=== PATIENT | female | born 1980 | race Hispanic/Latino ===

== ENCOUNTER 2017-06-07 00:32 | Emergency (ER) | payer OTHER ==
[~2017-06-07] VITALS: Ht 172.7 cm; Wt 77.6 kg
[~2017-06-07 00:32] MED LIST: APIDRA100 UNIT/1; CARTRIDGE STAM1 EACH SC; CEFUROXIME250 MG PO; DETROL LA4 MG PO; IBUPROFEN400 MG PO; LANTUS100 UNIT/1; LISINOPRIL10 MG PO; NORCO 10MG-325MG1 EA PO; NOVOLOG SC; PEPCID20 MG PO; PRAVASTATIN SOD20 MG PO; REGLAN10 MG PO
[2017-06-07] MEDS ORDERED: INSULIN REGULAR, HUMAN 100 UNIT/1 ML 3ML VIAL ONE (00:59)
[2017-06-07] MEDS ORDERED: SODIUM CHLORIDE 0.9% 1000ML 1,000 ML ONE (00:59)
[2017-06-07] MEDS ORDERED: INSULIN REGULAR, HUMAN 100 UNIT/1 ML 3ML VIAL SQ ONE (01:00)
[2017-06-07] MEDS ORDERED: SODIUM CHLORIDE 0.9% 1000ML 1,000 ML IV ONE ×2 (01:00→01:30)
[2017-06-07] MEDS ORDERED: INSULIN REGULAR, HUMAN 100 UNIT/1 ML 3ML VIAL IV ONE (01:00)
[2017-06-07 01:02] LABS: BASOPHILS % 0.2 % (0.0-1.0); BILIRUBIN,URINE NEGATIVE (NEGATIVE); CLARITY,URINE CLEAR (CLEAR); COLOR,URINE YELLOW (YELLOW); EOSINOPHILS # (AUTO) 0.2 (0.0-0.4); EOSINOPHILS % 1.9 % (0.0-6.0); HEMATOCRIT 36.7 % (34.2-44.1); KETONES,URINE 2+ (NEGATIVE); LEUKOCYTE ESTERASE ,URINE NEGATIVE (NEGATIVE); LYMPHOCYTES # (AUTO) 2.6 (1.0-3.2); LYMPHOCYTES % 27.1 % (18.0-39.1); MEAN CORPUSCULAR HEMOGLOBIN 26.8 pg (28-32); MEAN CORPUSCULAR HGB CONC 32.7 g/dL (31-35); MEAN CORPUSCULAR VOLUME 82.1 fL (81-99); MONOCYTES # (AUTO) 0.4 (0.2-0.8); MONOCYTES % 4.5 % (4.4-11.3); NEUTROPHILS # (AUTO) 6.3 (2.1-6.9); NEUTROPHILS % 66.1 % (38.7-80.0); NITRITE,URINE NEGATIVE (NEGATIVE); PLATELET COUNT 182 x10e3/uL (140-360); PROTEIN,URINE DIPSTICK NEGATIVE (NEGATIVE); RED BLOOD COUNT 4.47 x10e6/uL (3.6-5.1); RED CELL DISTRIBUTION WIDTH 15.7 % (11.7-14.4); URINE UROBILINOGEN 0.2 mg/dL (0.2 - 1)
[2017-06-07 01:13] LABS: BACTERIA,URINE RARE /HPF; EPITHELIAL CELLS,URINE RARE /LPF; RBC,URINE 0-5 /HPF (0-5); WBC,URINE (MAN) 0-5 /HPF (0-5)
[2017-06-07 01:19] LABS: ALBUMIN 3.4 g/dL (3.5-5.0); ANION GAP 14.3 mmol/L (8-16); CREATININE, SERUM 1.19 mg/dL (0.57-1.11); POTASSIUM 5.3 mmol/L (3.5-5.1)
--- NOTE | 2017-06-07 01:50 | Diagnostic Imaging Report ---
EXAM: CHEST SINGLE (PORTABLE), AP 1 view INDICATION: Hyperglycemia, bodyaches COMPARISON: None FINDINGS: LINES/TUBES: None LUNGS: No consolidations or edema. PLEURA: No effusions or pneumothorax. HEART AND MEDIASTINUM: Normal size and contour. BONES AND SOFT TISSUES: No acute findings. IMPRESSION: No acute thoracic abnormality. Signed by: Dr. Franchesca Posadas M.D. on 06/07/2017 1:47 AM
[2017-06-07 03:07] LABS: ANION GAP 9.7 mmol/L (8-16); BLOOD UREA NITROGEN 14 mg/dL (7-26); BUN/CREATININE RATIO 18 (6-25); CALCIUM 8.2 mg/dL (8.4-10.2); CARBON DIOXIDE 21 mmol/L (22-29); CHLORIDE 108 mmol/L (98-107); EST GLOMERULAR FILTRATION RATE > 60 ML/MIN (60-); GLUCOSE 346 mg/dL (74-118)
[2017-06-07 03:15] LABS: POTASSIUM 3.7 mmol/L (3.5-5.1); SODIUM 135 mmol/L (136-145)
== END 2017-06-07 04:01 | disposition home or self-care (01) ==
LOC: ER 00:32
DX: E10.65 Type 1 diabetes mellitus with hyperglycemia (principal); I10 Essential (primary) hypertension; E78.5 Hyperlipidemia, unspecified
CPT/HCPCS: 36415; 71045; 80048; 80053; 81001; 82948; 85025; 99284; J7030

== ENCOUNTER 2017-07-04 09:15 | Observation (INO) | payer OTHER ==
[~2017-07-04] VITALS: Ht 172.7 cm; Wt 82.6 kg
--- OUTSIDE RECORDS SUMMARY | 2017-07-04 09:18 | XMS REPORT | Continuity of Care Document ---
Author Author [facility] Organization [facility] Address [address] [place] [address] Phone Unavailable Care Team Providers Care Sewing Room Supervisor Name Role Phone NAVEED DELUNA MD PCP Insurance Providers Guarantor ShayyMisha Address [address] [place] [address] [facility] Policy Number [id number] Subscriber's Name ShayyAjit lott Relationship 01 Group Number [id number] Group Name [facility] Effective Date 11 Advance Directives Directive Response Recorded Date/Time Does the patient have an advance directive? No 10/31/13 10:36pm If yes, is advance directive on file with [facility]? No 10/31/13 10:36pm If not on file with [facility] will patient provide a copy? Yes 12/31/16 1:51am Do you have a Directive to Physician? No 06/07/17 12:48am Do you have a Medical Power of Ict Development Manager? No 06/07/17 12:48am Do you have an out of hospital Do Not Resuscitate Order? No 06/07/17 12:48am Do you have any special needs we should be aware of? No 06/07/17 12:48am Do you have a support person here with you today? Yes 06/07/17 12:48am Did patient receive Notice of Privacy Practices? Yes 06/07/17 12:48am Did patient receive patient rights and responsibilities? Yes 06/07/17 12:48am Problems No problem information available. Medications Current Home Medications Medication Dose Units Route Directions Days Qty Instructions Start Date Ibuprofen 400 Mg Tablet 800 Mg Oral As Needed for Pain Novolog 25 Units Subcutaneously Before Meals And At Bedtime Past Home Medications Medication Directions Ordered Status Acetaminophen/Hydrocodone Bitart ([place] 10MG-325MG*) 1 Ea Tab, 1 Tab Oral Every 4 Hours as needed for Pain Discontinued Cefuroxime Axetil (Cefuroxime) 250 Mg Tablet, 500 Mg Oral Every 12 Hours Discontinued Famotidine (Pepcid) 20 Mg Tablet, 40 Mg Oral Twice A Day Discontinued Lisinopril 10 Mg Tablet, 10 Mg Oral Daily Discontinued Metoclopramide Hcl (Reglan) 10 Mg Tablet, 10 Mg Oral Tid W/Meals Discontinued Pravastatin Sodium 20 Mg Tablet, 20 Mg Oral Bedtime Discontinued Tolterodine Tartrate (Detrol La) 4 Mg Cap.er.24h, 4 Mg Oral Daily as needed for Urinary Frequency Discontinued Social History Social History Problem Response Recorded Date/Time Onset Date Status Hx Psychiatric Problems No 10/31/2013 10:36pm Not Applicable Not Applicable Hx Eating Disorder No 10/31/2013 10:36pm Not Applicable Not Applicable Hx Substance Use Disorder No 10/31/2013 10:36pm Not Applicable Not Applicable Hx Depression Yes 10/31/2013 10:36pm Not Applicable Not Applicable Hx Alcohol Use No 10/31/2013 10:36pm Not Applicable Not Applicable Hx Substance Use Treatment No 10/31/2013 10:36pm Not Applicable Not Applicable Hx Physical Abuse No 10/31/2013 10:36pm Not Applicable Not Applicable Hospital Discharge Instructions No hospital discharge instruction information available. Plan of Care Discharge Date 06/07/17 4:01am Disposition HOME, SELF-CARE Condition at Discharge Improved Instructions/Education Provided Diabetes and Diet Hyperglycemia Forms Provided Work/School Excuse Prescriptions See Medication Section Referrals NAVEED DELUNA MD Order Date: Call for an appointment Address: [id number] [place] [address] [address] [place] [address] Additional Instructions/Education drink plenty of fluids follow diabetic diet follow-up with your primary care provider, call for appointment Functional Status No functional status information available. Allergies, Adverse Reactions, Alerts Allergen Type Severity Reaction Status Last Updated Levofloxacin Allergy Intermediate shivering, shaking, pain Active 10/31/13 Immunizations No immunization information available. Vital Signs Acute Vital Signs Vital Response Date/Time Pulse Pulse Rate (adult) 99 bpm (60 - 90) 12/31/2016 4:55am Respiratory Rate 14 bpm (12 - 24) 12/31/2016 4:55am Blood Pressure 112/67 mm Hg 12/31/2016 4:55am Height 5 ft 8 in 06/07/2017 12:44am Weight 171 lb 06/07/2017 12:44am Body Mass Index 26.0 kg/m^2 06/07/2017 12:44am Results Laboratory Results Test Name Result Units Flags Reference Collection Date/Time Result Date/ Time Comments Amylase Level 44 U/L 25-125 12/31/2016 1:33am 12/31/2016 2:01am Lipase 26 U/L 8-78 12/31/2016 1:33am 12/31/2016 2:01am Human Chorionic Gonadotropin, Qual NEGATIVE NEGATIVE 12/31/2016 1: 33am 12/31/2016 1:49am Ethyl Alcohol Level 220.0 mg/dL H 0.0-10.0 12/31/2016 1:33am 12/31/2016 2:01am White Blood Count 9.59 x10e3/uL 4.8-10.8 06/07/2017 12:50am 06/07/2017 1:04am Red Blood Count 4.47 x10e6/uL 3.6-5.1 06/07/2017 12:50am 06/07/2017 1: 04am Hemoglobin 12.0 g/dL 12.0-16.0 06/07/2017 12:50am 06/07/2017 1:04am Hematocrit 36.7 % 34.2-44.1 06/07/2017 12:50am 06/07/2017 1:04am Mean Corpuscular Volume 82.1 fL 81-99 06/07/2017 12:50am 06/07/2017 1: 04am Mean Corpuscular Hemoglobin 26.8 pg L 28-32 06/07/2017 12:50am 2017 1:04am Mean Corpuscular Hemoglobin Concent 32.7 g/dL 31-35 06/07/2017 12:50am 06/07/2017 1:04am Red Cell Distribution Width 15.7 % H 11.7-14.4 06/07/2017 12:50am 2017 1:04am Platelet Count 182 x10e3/uL 140-360 06/07/2017 12:50am 06/07/2017 1: 04am Neutrophils (%) (Auto) 66.1 % 38.7-80.0 06/07/2017 12:50am 06/07/2017 1 :04am Lymphocytes (%) (Auto) 27.1 % 18.0-39.1 06/07/2017 12:50am 06/07/2017 1 :04am Monocytes (%) (Auto) 4.5 % 4.4-11.3 06/07/2017 12:50am 06/07/2017 1: 04am Eosinophils (%) (Auto) 1.9 % 0.0-6.0 06/07/2017 12:50am 06/07/2017 1: 04am Basophils (%) (Auto) 0.2 % 0.0-1.0 06/07/2017 12:50am 06/07/2017 1: 04am IM GRANULOCYTES % 0.2 % 0.0-1.0 06/07/2017 12:50am 06/07/2017 1:04am Neutrophils # (Auto) 6.3 2.1-6.9 06/07/2017 12:50am 06/07/2017 1: 04am Lymphocytes # (Auto) 2.6 1.0-3.2 06/07/2017 12:50am 06/07/2017 1: 04am Monocytes # (Auto) 0.4 0.2-0.8 06/07/2017 12:50am 06/07/2017 1:04am Eosinophils # (Auto) 0.2 0.0-0.4 06/07/2017 12:50am 06/07/2017 1: 04am Basophils # (Auto) 0.0 0.0-0.1 06/07/2017 12:50am 06/07/2017 1:04am Absolute Immature Granulocyte (auto 0.02 x10e3/uL 0-0.1 06/07/2017 12: 50am 06/07/2017 1:04am Urine Color YELLOW YELLOW 06/07/2017 12:50am 06/07/2017 1:05am Urine Clarity CLEAR CLEAR 06/07/2017 12:50am 06/07/2017 1:05am Urine Specific [place] 1.015 1.010-1.025 06/07/2017 12:50am 2017 1:05am Urine pH 5 5 - 7 06/07/2017 12:50am 06/07/2017 1:05am Urine Leukocyte Esterase NEGATIVE NEGATIVE 06/07/2017 12:50am 2017 1:05am Urine Nitrite NEGATIVE NEGATIVE 06/07/2017 12:50am 06/07/2017 1:05am Urine Protein NEGATIVE NEGATIVE 06/07/2017 12:50am 06/07/2017 1:05am Urine Glucose (UA) 3+ H NEGATIVE 06/07/2017 12:50am 06/07/2017 1:05am Urine Ketones 2+ H NEGATIVE 06/07/2017 12:50am 06/07/2017 1:05am Urine Urobilinogen 0.2 mg/dL 0.2 - 1 06/07/2017 12:50am 06/07/2017 1: 05am Urine Bilirubin NEGATIVE NEGATIVE 06/07/2017 12:50am 06/07/2017 1: 05am Urine Blood TRACE H NEGATIVE 06/07/2017 12:50am 06/07/2017 1:05am Urine WBC 0-5 /HPF 0-5 06/07/2017 12:50am 06/07/2017 1:13am Urine RBC 0-5 /HPF 0-5 06/07/2017 12:50am 06/07/2017 1:13am Urine Bacteria RARE /HPF NONE 06/07/2017 12:50am 06/07/2017 1:13am Urine Epithelial Cells RARE /LPF NONE 06/07/2017 12:50am 06/07/2017 1: 13am Sodium Level 135 mmol/L # L 136-145 06/07/2017 2:45am 06/07/2017 3:16am VERIFIED PREVIOUS RESULTS Potassium Level 3.7 mmol/L # 3.5-5.1 06/07/2017 2:45am 06/07/2017 3:16am VERIFIED PREVIOUS RESULTS Chloride Level 108 mmol/L H 98-107 06/07/2017 2:45am 06/07/2017 3:16am Carbon Dioxide Level 21 mmol/L L 22-06/07/2017 2:45am 06/07/2017 3: 16am Anion Gap 9.7 mmol/L 8-16 06/07/2017 2:45am 06/07/2017 3:16am Blood Urea Nitrogen 14 mg/dL 7-06/07/2017 2:45am 06/07/2017 3:16am Creatinine 0.80 mg/dL 0.57-1.11 06/07/2017 2:45am 06/07/2017 3:16am BUN/Creatinine Ratio 18 6-25 06/07/2017 2:45am 06/07/2017 3:16am Estimat Glomerular Filtration Rate > 60 ML/MIN 60- 06/07/2017 2:45am 3:16am Ranges were taken from the National Kidney Disease Education Program and the National Kidney Foundation literature. Reference ranges: 60 or greater: Normal 16-59 (for 3 consecutive months): Chronic kidney disease 15 or less: Kidney failure Glucose Level 346 mg/dL H 74-118 06/07/2017 2:45am 06/07/2017 3:16am Calcium Level 8.2 mg/dL L 8.4-10.2 06/07/2017 2:45am 06/07/2017 3:16am Bedside Glucose 232 mg/dL H 70-120 06/07/2017 3:51am 06/07/2017 4:00am Meter ID: [id number] Total Bilirubin 0.3 mg/dL 0.2-1.2 06/07/2017 12:50am 06/07/2017 1:23am Aspartate Amino Transf (AST/SGOT) 16 IU/L 5-34 06/07/2017 12:50am 06/07 1:23am Alanine Aminotransferase (ALT/SGPT) 15 IU/L 0-55 06/07/2017 12:50am 1:23am Total Protein 6.8 g/dL 6.5-8.1 06/07/2017 12:50am 06/07/2017 1:23am Albumin 3.4 g/dL L 3.5-5.0 06/07/2017 12:50am 06/07/2017 1:23am Globulin 3.4 g/dL 2.3-3.5 06/07/2017 12:50am 06/07/2017 1:23am Albumin/Globulin Ratio 1.0 0.8-2.0 06/07/2017 12:50am 06/07/2017 1: 23am Alkaline Phosphatase 122 IU/L 40-150 06/07/2017 12:50am 06/07/2017 1: 23am Procedures No procedure information available. Encounters Encounter Location Arrival/Admit Date Discharge/Depart Date Attending Provider Departed Emergency Room [facility] 06/07/17 12:32am 06/07 4:01am TYREE BYRD MD Departed Emergency Room [facility] 12/31/16 1:22am 5:00am TYREE BYRD MD
--- OUTSIDE RECORDS SUMMARY | 2017-07-04 09:18 | XMS REPORT ---
Author [facility] Address Unknown Phone Unavailable Care Team Providers Care Checking Clerk Name Role Phone TYREE BYRD Unavailable Unavailable Problems This patient has no known problems. Allergies, Adverse Reactions, Alerts This patient has no known allergies or adverse reactions. Medications This patient has no known medications. Results Test Description Test Time Test Comments Text Results Atomic Results Result Comments CHEST SINGLE (PORTABLE) [place] [address] Patient Name: YARITZA SKINNER MR #: [id number] : 1980 Age/Sex: 37/F Req #: [id number] Adm Physician: Ordered by: TYREE BYRD MD Report #: [id number] Location: ER Room/Bed: ___ Procedure: [id number] DX/CHEST SINGLE (PORTABLE) Exam Date: 06/07/17 Exam Time: 0117 REPORT STATUS: Signed EXAM: CHEST SINGLE (PORTABLE), AP 1 view INDICATION: Hyperglycemia, bodyaches COMPARISON: None FINDINGS: LINES/TUBES: None LUNGS: No consolidations or edema. PLEURA: No effusions or pneumothorax. HEART AND MEDIASTINUM: Normal size and contour. BONES AND SOFT TISSUES: No acute findings. IMPRESSION: No acute thoracic abnormality. Signed by: Dr. Kasia Posadas M.D. on 06/07/2017 1:47 AM Dictated By: KASIA POSADAS MD 6 Transcribed By: SOO on 06/07/17146 COPY TO: TYREE BYRD MD
[2017-07-04 09:40] LABS: BASOPHILS % 0.1 % (0.0-1.0); EOSINOPHILS % 0.4 % (0.0-6.0); HEMATOCRIT 36.1 % (34.2-44.1); HEMOGLOBIN 12.2 g/dL (12.0-16.0); LYMPHOCYTES # (AUTO) 1.8 (1.0-3.2); MEAN CORPUSCULAR HEMOGLOBIN 27.4 pg (28-32); MEAN CORPUSCULAR HGB CONC 33.8 g/dL (31-35); MEAN CORPUSCULAR VOLUME 81.1 fL (81-99); MONOCYTES # (AUTO) 0.5 (0.2-0.8); MONOCYTES % 4.8 % (4.4-11.3); NEUTROPHILS # (AUTO) 7.5 (2.1-6.9); NEUTROPHILS % 76.3 % (38.7-80.0); PLATELET COUNT 196 x10e3/uL (140-360); RED BLOOD COUNT 4.45 x10e6/uL (3.6-5.1); RED CELL DISTRIBUTION WIDTH 15.7 % (11.7-14.4)
[2017-07-04] MEDS ORDERED: SODIUM CHLORIDE 0.9% 1000ML 1,000 ML IV ONE (09:45)
[2017-07-04] MEDS ORDERED: PRAVASTATIN SOD20 MG PO (09:57)
[2017-07-04] MEDS ORDERED: LISINOPRIL10 MG PO (09:57)
[2017-07-04 09:58] LABS: ALANINE AMINOTRANSFERASE 14 IU/L (0-55); ALBUMIN 3.6 g/dL (3.5-5.0); ALBUMIN/GLOBULIN RATIO 0.9 (0.8-2.0); ALKALINE PHOSPHATASE 88 IU/L (40-150); ANION GAP 13.3 mmol/L (8-16); BLOOD UREA NITROGEN 15 mg/dL (7-26); BUN/CREATININE RATIO 15 (6-25); CALCIUM 9.4 mg/dL (8.4-10.2); CARBON DIOXIDE 24 mmol/L (22-29); CHLORIDE 101 mmol/L (98-107); EST GLOMERULAR FILTRATION RATE > 60 ML/MIN (60-); GLUCOSE 246 mg/dL (74-118); MAGNESIUM 1.2 MG/DL (1.3-2.1); PHOSPHORUS 1.3 MG/DL (2.3-4.7); POTASSIUM 3.3 mmol/L (3.5-5.1); SODIUM 135 mmol/L (136-145)
[2017-07-04 10:17] LABS: THYROID STIMULATING HORMONE 1.164 uIU/mL (0.350-4.940)
[2017-07-04] MEDS ORDERED: DEXTROSE 10% 1,000 ML IV SCH (10:45)
[2017-07-04] MEDS ORDERED: MAGNESIUM SULFATE 2GM/50ML 50 ML IV ONE (11:15)
[2017-07-04 11:27] LABS: CLARITY,URINE SL CLOUDY (CLEAR); COLOR,URINE YELLOW (YELLOW); LEUKOCYTE ESTERASE ,URINE NEGATIVE (NEGATIVE); NITRITE,URINE NEGATIVE (NEGATIVE)
[2017-07-04 11:28] LABS: BILIRUBIN,URINE NEGATIVE (NEGATIVE); KETONES,URINE 3+ (NEGATIVE); PROTEIN,URINE DIPSTICK 1+ (NEGATIVE); URINE UROBILINOGEN 0.2 mg/dL (0.2 - 1)
[2017-07-04] MEDS ORDERED: POTASSIUM PHOSPHATE 20 MM in SODIUM CHLORIDE 0.9% 250ML 250 ML IV ONE (11:30)
[2017-07-04] MEDS ORDERED: SODIUM CHLORIDE FLUSH 10 ML SYR INJ PRN (11:30)
[2017-07-04] MEDS ORDERED: ONDANSETRON HCL INJ 2 MG/ML VIAL IV PRN (11:30)
[2017-07-04 11:43] LABS: BACTERIA,URINE RARE /HPF; EPITHELIAL CELLS,URINE FEW /LPF; RBC,URINE 21-50 /HPF (0-5); YEAST,URINE RARE
[2017-07-04] MEDS ORDERED: IBUPROFEN 200 MG TAB PO PRN (12:15)
[2017-07-04 14:40] VITALS: BP 117/76
[2017-07-04 15:03] VITALS: BP 117/76
[2017-07-04] MEDS ORDERED: DEXTROSE 50% SYRINGE 50 ML IV PRN (15:30)
[2017-07-04 15:51] VITALS: BP 113/71
[2017-07-04] MEDS ORDERED: PNEUMOCOCCAL VACCINE POLYVALENT 23 MCG/0.5 ML VIAL IM NR (16:00)
[2017-07-04] MEDS: INSULIN LISPRO 100 UNIT/1 ML 3ML VIAL SQ SCH ×2 (16:37→20:45)
[2017-07-04 20:00] VITALS: BP 105/63
[2017-07-05] VITALS (9 sets, daily range): BP systolic 104–119; BP diastolic 57–73
--- NOTE | 2017-07-05 00:33 | History and Physical ---
PRIMARY CARE PHYSICIAN: Dr. Green CHIEF COMPLAINT: Elevated blood glucose with leaky insulin pump. HISTORY OF PRESENT ILLNESS: This is 37-year-old woman with history of diabetes mellitus, type 1, who has implanted insulin pump, but who experiences dysfunction of the pump when she lies on the pump while asleep. Today, patient was laying on the pump. When she awoke, close by leak in insulin. Patient checked her blood sugar, reports over 500. Therefore, she started to take 60 units of Humalog when she normally takes only 5 units, unknown why she took 60 units. Patient went to work. At work, she says that she became very fatigued and passed out, so she was brought to the hospital. Glucose found to be low. She was admitted for monitoring of blood sugars. Patient had of the insulin pump. She denies any chest pain, denies any other symptoms. PAST MEDICAL HISTORY: , hypertension, pyelonephritis, hydronephrosis, bilateral ureteral stent placement, E. coli urinary tract infection. PAST SURGICAL HISTORY: Ureteral stent placement, insulin pump placement. ALLERGIES: PER ELECTRONIC MEDICAL RECORD. FAMILY HISTORY/SOCIAL HISTORY: Patient is . She has 2 children. No alcohol, illicits or cigarettes. MEDICATIONS: Per electronic medical record. REVIEW OF SYSTEMS: Denies any dizziness, chest pain. PHYSICAL EXAM VITAL SIGNS: Reviewed. GENERAL APPEARANCE: Tired-appearing woman, resting in bed. HEENT: Anicteric. Pupils respond to light. No oral lesions. CARDIOVASCULAR: Normal S1, S2. LUNGS: Moderate breath sounds. ABDOMEN: Soft, nontender. She has right-sided abdomen insulin pump, which appears to be intact. LABS: Reviewed. MEDICATIONS: Reviewed. ASSESSMENT AND PLAN: A 37-year-old woman. 1. Insulin pump dysfunction. Will consult Dr. Grant to assist in management. 2. Uncontrolled diabetes mellitus, type 1. Perform Accu-Cheks and monitor closely. Consult Dr. Grant of endocrinology. Hemoglobin A1c is 9.5. Will obtain a lipid panel. Will go . 3. Hypokalemia. Replete potassium. 4. Hypophosphatemia and hypomagnesemia. Replace electrolytes. 5. Hypertension. Continue lisinopril. 6. Hyperlipidemia. Continue statin. 7. Prophylaxis. Use sequential compression device and Pepcid. 8. Disposition: Follow up laboratories. Follow up electrolytes. Follow up recommendations from Dr. Grant. Job#: [id number] CQ
[2017-07-05] MEDS ORDERED: INSULIN LISPRO 100 UNIT/1 ML 3ML VIAL SQ ONE (02:45)
[2017-07-05 06:26] LABS: ALANINE AMINOTRANSFERASE 13 IU/L (0-55); ALBUMIN/GLOBULIN RATIO 0.9 (0.8-2.0); ALKALINE PHOSPHATASE 75 IU/L (40-150); BLOOD UREA NITROGEN 12 mg/dL (7-26); BUN/CREATININE RATIO 13 (6-25); CALCIUM 8.7 mg/dL (8.4-10.2); CARBON DIOXIDE 23 mmol/L (22-29); CHLORIDE 101 mmol/L (98-107); CHOL/HDL RATIO 2.5 (3.0-3.6); CHOLESTEROL 137 MD/DL (0-199); EST GLOMERULAR FILTRATION RATE > 60 ML/MIN (60-); GLUCOSE 367 mg/dL (74-118); HDL CHOLESTEROL 55 MG/DL (40-60); LDL CHOLESTEROL 59 MG/DL (60-130); MAGNESIUM 1.6 MG/DL (1.3-2.1); PHOSPHORUS 2.7 MG/DL (2.3-4.7); SODIUM 132 mmol/L (136-145); TRIGLYCERIDES 115 MG/DL (0-149)
[2017-07-05] MEDS: INSULIN LISPRO 100 UNIT/1 ML 3ML VIAL SQ SCH ×7 (08:00→21:27)
[2017-07-05] MEDS: FAMOTIDINE 20 MG TAB PO SCH ×2 (08:25→16:52)
[2017-07-05] MEDS ORDERED: LISINOPRIL 10 MG TAB PO SCH (09:00)
[2017-07-05 15:02] LABS: FREE T4 (FREE THYROXINE) 1.07 ng/dL (0.9-1.8); THYROID STIMULATING HORMONE 1.384 uIU/mL (0.350-4.940)
[2017-07-05] MEDS ORDERED: INSULIN LISPRO 100 UNIT/1 ML 3ML VIAL SQ SCH (16:30)
--- NOTE | 2017-07-05 17:22 | Consultation ---
DATE OF CONSULTATION: July 05, 2017 ENDOCRINE CONSULTATION This is a patient of Dr. Herrera. Thank you very much for referring this patient. HISTORY OF PRESENT ILLNESS: This is a 37-year-old female who is referred to me for evaluation of uncontrolled diabetes mellitus. Patient reportedly is a known diabetic for almost 20 years, and she is on insulin pump on various dosages. We do not have any information about the insulin pump schedules. Patient had some malfunction of the pump. Her blood sugar jumped up quite significantly to 500. She gave multiple shots of the subcutaneous insulin. Then blood sugar dropped significantly. She is admitted into the hospital for further evaluation. Patient also has history of a multitude of complications from diabetes including diabetic sensorimotor neuropathy. She has 2 children. Her monthly periods are regular. Patient does not take any other routine medications at home. PHYSICAL EXAMINATION GENERAL: On physical examination today, the patient is alert, awake, very anxious and nervous. VITAL SIGNS: Her heart rate is around 70. Blood pressure 130/80 mmHg. HEENT: Essentially unremarkable. NECK: Thyroid is palpable. Clinically she is near euthyroid. CHEST: Bilateral vesicular breathing. She has mild bronchospasm. CARDIOVASCULAR: Both 1st and 2nd heart sounds. There is no 3rd or 4th heart sound. Ejection sound grade 2/6. EXTREMITIES: Patient has evidence of diabetic sensory neuropathy in both lower extremities. CLINICAL IMPRESSION: Diabetes mellitus type 1, uncontrolled, with complications, on insulin pump. Possible malfunction of the insulin pump and extra subcutaneous insulin resulting in hypoglycemia. The plan at this time is to put her on subcutaneous insulin for now, monitor her blood sugars closely and get her back on the insulin pump. Patient needs extensive diabetic and pump education. Thanks for referring this patient. I will be following this patient with you. Job#: [id number] [email or web address]
[2017-07-05] MEDS ORDERED: INSULIN DETEMIR 100 UNIT/ML PEN SQ SCH ×2 (21:00)
[2017-07-06] VITALS: BP 99/58
[2017-07-06 04:00] VITALS: BP 120/58
[2017-07-06] MEDS ORDERED: Insulin Detemir SQ (06:28)
[2017-07-06] MEDS ORDERED: IBUPROFEN 400 MG TAB PO PRN (07:00)
[2017-07-06 07:51] VITALS: BP 128/67
[2017-07-06] MEDS ORDERED: ONDANSETRON HCL 4 MG ORAL DISINTEGRATING TAB PO PRN (08:30)
--- NOTE | 2017-07-06 08:36 | Progress Note ---
DATE: July 05, 2017 TIME: 7 a.m. OVERNIGHT: Elevated blood sugar. REVIEW OF SYSTEMS: Denies any dizziness. PHYSICAL EXAMINATION VITAL SIGNS: Reviewed. GENERAL: A tired-appearing woman resting in bed. HEENT: Anicteric. CARDIOVASCULAR: Normal S1 and S2. LUNGS: Moderate breath sounds. ABDOMEN: Soft, nontender and nondistended. She has a right-sided insulin pump site in place clean and dry. No erythema. No tenderness. SKIN: Dry. PSYCHIATRIC: Flat affect. LABS: Reviewed. MEDICATIONS: Reviewed. ASSESSMENT: A 37-year-old woman with: 1. Insulin pump dysfunction. 2. Uncontrolled diabetes mellitus, type 1. 3. Hypokalemia. 4. Hypophosphatemia. 5. Hypertension. 6. Hyperlipidemia. PLAN 1. Continue insulin regimen. 2. Await endocrinology recommendations. 3. Continue Pepcid. 4. Continue supportive care and await endocrinology recommendations. 5. Follow up hemoglobin A1c and lipid panel. Job#: [id number] LOS
[2017-07-06] MEDS ORDERED: LISINOPRIL 20 MG TAB PO SCH (09:00)
--- NOTE | 2017-07-06 09:07 | History and Physical ---
ADDENDUM TO HISTORY AND PHYSICAL PHYSICAL EXAMINATION CONTINUATION EXTREMITIES: No edema or calf tenderness. NEUROLOGIC: Alert and oriented times 3, moving all extremities. SKIN: Dry. PSYCHIATRIC: Normal affect. Job#: [id number]
[2017-07-06] MEDS: INSULIN LISPRO 100 UNIT/1 ML 3ML VIAL SQ SCH ×6 (09:15→17:00)
[2017-07-06] MEDS: FAMOTIDINE 20 MG TAB PO SCH (09:15)
[2017-07-06 09:20] VITALS: BP 128/67
--- NOTE | 2017-07-06 10:55 | Discharge Summary ---
PRINCIPAL DIAGNOSES 1. Insulin pump dysfunction. 2. Uncontrolled diabetes mellitus, type 1. 3. Hypokalemia. 4. Hypophosphatemia. 5. Hypomagnesemia. SECONDARY DIAGNOSES 1. Hypertension. 2. Hyperlipidemia. CHIEF COMPLAINT: Elevated blood glucose and leaking insulin pump. HISTORY OF PRESENT ILLNESS: This is a 37-year-old woman developing insulin pump dysfunction. Please refer to the H and P for further details. HOSPITAL COURSE: The patient developed hypoglycemia due to insulin pump dysfunction. She took extra doses of NovoLog resulting in hypoglycemia. She was brought to the hospital. She has been treated with an insulin regimen. Dr. Grant of endocrinology was consulted. Hemoglobin A1c was 9.5. LDL was 59, and triglycerides were 115. The patient is doing better. Dr. Grant will give final insulin regimen. The patient will be transitioned home. DISCHARGE MEDICATIONS: Per electronic medical record. FOLLOWUP 1. With primary care doctor in 1 week. 2. Follow up with endocrinology, Dr. Green, in 1 week. CONDITION ON DISCHARGE: Stable and improving. DISCHARGE LOCATION: Home. STACEY YEE MD Job#: [id number]
[2017-07-06 12:00] VITALS: BP 114/66
[2017-07-06 16:38] VITALS: BP 113/65
== END 2017-07-06 18:30 | disposition home or self-care (01) ==
LOC: ER 09:15 → ERHOLD 14:13 → MED/SURG2 14:16 → MED/SURG 07-05 21:59
PROVIDERS: ADMIT Internal Medicine; ATTEND Internal Medicine
DX: T85.63 Leakage of other specified internal prosthetic devices, implants and grafts (principal); E10.65 Type 1 diabetes mellitus with hyperglycemia; E83.39 Other disorders of phosphorus metabolism; E83.42 Hypomagnesemia; Z79.4 Long term (current) use of insulin; E87.6 Hypokalemia; E78.5 Hyperlipidemia, unspecified; I10 Essential (primary) hypertension
CPT/HCPCS: 36415 ×3; 80053 ×2; 80061; 81001; 82947; 82948 ×3; 83036 ×2; 83735 ×2; 84100 ×2; 84439; 84443 ×2; 84702; 85025; 90732; 93005; 96372; G0378 ×3; J7030; J7050

== ENCOUNTER 2020-01-20 18:24 | Emergency (ER) | payer OTHER ==
[~2020-01-20] VITALS: Ht 172.7 cm; Wt 90.7 kg
[~2020-01-20 18:24] MED LIST changes: +Insulin Detemir SQ
[2020-01-20] MEDS ORDERED: ONDANSETRON HCL INJ 2MG/ML 2ML 2 MG/ML VIAL IV STA (18:37)
[2020-01-20] MEDS ORDERED: MORPHINE SULFATE INJ 4 MG/ML INJ 1ML IV STA (18:37)
[2020-01-20] MEDS ORDERED: ASPIRIN 81 MG CHEW TAB PO ONE (18:45)
[2020-01-20 18:55] LABS: BASOPHILS % 0.2 % (0.0-1.0); EOSINOPHILS # (AUTO) 0.1 (0.0-0.4); EOSINOPHILS % 2.7 % (0.0-6.0); HEMATOCRIT 38.9 % (34.2-44.1); HEMOGLOBIN 13.5 g/dL (12.0-16.0); LYMPHOCYTES # (AUTO) 1.4 (1.0-3.2); LYMPHOCYTES % 32.5 % (18.0-39.1); MEAN CORPUSCULAR HEMOGLOBIN 30.1 pg (28-32); MEAN CORPUSCULAR HGB CONC 34.7 g/dL (31-35); MEAN CORPUSCULAR VOLUME 86.6 fL (81-99); MONOCYTES # (AUTO) 0.6 (0.2-0.8); MONOCYTES % 12.6 % (4.4-11.3); NEUTROPHILS # (AUTO) 2.3 (2.1-6.9); NEUTROPHILS % 51.8 % (38.7-80.0); PLATELET COUNT 152 x10e3/uL (140-360); RED BLOOD COUNT 4.49 x10e6/uL (3.6-5.1); RED CELL DISTRIBUTION WIDTH 11.9 % (11.7-14.4)
[2020-01-20 19:10] LABS: ALANINE AMINOTRANSFERASE 32 IU/L (0-55); ALBUMIN 3.7 g/dL (3.5-5.0); ALBUMIN/GLOBULIN RATIO 1.2 (0.8-2.0); ALKALINE PHOSPHATASE 83 IU/L (40-150); ANION GAP 13.2 mmol/L (8-16); BLOOD UREA NITROGEN 10 mg/dL (7-26); BUN/CREATININE RATIO 14 (6-25); CARBON DIOXIDE 26 mmol/L (22-29); CHLORIDE 102 mmol/L (98-107); CREATINE KINASE 62 IU/L (29-168); CREATININE, SERUM 0.71 mg/dL (0.57-1.11); EST GLOMERULAR FILTRATION RATE > 60 ML/MIN (60-); GLUCOSE 133 mg/dL (74-118); POTASSIUM 4.2 mmol/L (3.5-5.1); SODIUM 137 mmol/L (136-145)
[2020-01-20] MEDS ORDERED: IOPAMIDOL 370 MG/ML 200 ML INFUS..BTL INJ ONE (19:32)
[2020-01-20] MEDS ORDERED: SODIUM CHLORIDE 0.9% 50ML 50 ML ONE (19:32)
== END 2020-01-20 22:03 | disposition home or self-care (01) ==
LOC: ER 19:32
DX: U07.1 COVID-19 (principal); R10.13 Epigastric pain; R06.02 Shortness of breath; R51.9 Headache, unspecified; M79.10 Myalgia, unspecified site; I10 Essential (primary) hypertension; E11.65 Type 2 diabetes mellitus with hyperglycemia; E78.5 Hyperlipidemia, unspecified; E78.00 Pure hypercholesterolemia, unspecified
CPT/HCPCS: 36415; 71260; 80053; 81025; 82550; 82553; 83880; 84484; 85025; 93005; 99284; J2270; J2405; Q9967; U0002

== ENCOUNTER 2020-01-22 16:15 | Emergency (ER) | payer OTHER ==
[~2020-01-22] VITALS: Ht 172.7 cm; Wt 90.7 kg
--- OUTSIDE RECORDS SUMMARY | 2020-01-23 19:45 | XMS REPORT | Continuity of Care Document ---
Author Author [facility] t Organization [facility] Address [address] [place] [address] Phone Unavailable Care Team Providers Care Instructor Ballroom Dancing Name Role Phone MIKIE HURST, Wade AMIR PCP JORGE LUIS FIERRO Attphys Unavailable Tyler BYRD Attphys Unavailable Payers Payer Name Policy Type Policy Number Effective Date Expiration Date [employer] [facility] [id number] 2011 00:00:00 [facility] Problems Condition Name Condition Details Condition Category Status Onset Date Resolution Date Last Treatment Date Treating Clinician Comments Source Hypophosphatemia Hypophosphatemia Problem Active [facility] Uncontrolled diabetes mellitus Uncontrolled diabetes mellitus Problem Active [facility] Allergies, Adverse Reactions, Alerts Allergy Name Allergy Type Status Severity Reaction(s) Onset Date Inacti ve Date Treating Clinician Comments Source Levofloxacin Allergy to Substance Active Moderate shivering, sh aking, pain 2017-07-04 00:00:00 [facility] Medications Ordered Medication Name Filled Medication Name Start Date Stop Da te Current Medication? Ordering Clinician Indication Dosage Frequency Signature (SIG) Comments Components Source Insulin Detemir 100 Unit/Ml Pen Insulin Detemir 100 Unit/Ml Pen 2017-07-06 00:00:00 2017-08-05 00:00:00 Mar Herrera Md 16 Bedtime [facility] Ibuprofen 400 Mg Tablet Ibuprofen 400 Mg Tablet Yes 800 As Needed for Pain [facility] Lisinopril 10 Mg Tablet Lisinopril 10 Mg Tablet Yes 20 Daily [facility] Novolog Novolog Yes 25 Before Meals And At Bedt sanchez [facility] Pravastatin Sodium 20 Mg Tablet Pravastatin Sodium 20 Mg Tablet Yes 2 Bedtime [facility] Acetaminophen/Hydrocodone Bitart ([place] 10MG-325MG*) 1 Ea Tab, 1 Tab Oral Acetaminophen/Hydrocodone Bitart ([place] 10MG-325MG*) 1 Ea Tab, 1 Tab Oral 2014-08-25 00:00:00 No 1 Every 4 Hours as nee ded for Pain [facility] Lisinopril 10 Mg Tablet, 10 Mg Oral Lisinopril 10 Mg Tablet, 10 Mg Oral 2014-08-22 00:00:00 No 10 Daily [facility] Pravastatin Sodium 20 Mg Tablet, 20 Mg Oral Pravastati n Sodium 20 Mg Tablet, 20 Mg Oral 2014-08-22 00:00:00 No 20 Bedtime [facility] Cefuroxime Axetil (Cefuroxime) 250 Mg Tablet, 500 Mg O ral Cefuroxime Axetil (Cefuroxime) 250 Mg Tablet, 500 Mg Oral 2013-10-31 00:00:00 No 500 Every 12 Hours [facility] Famotidine (Pepcid) 20 Mg Tablet, 40 Mg Oral Famotidin e (Pepcid) 20 Mg Tablet, 40 Mg Oral 2013-10-31 00:00:00 No 40 Twice A Day [facility] Metoclopramide Hcl (Reglan) 10 Mg Tablet, 10 Mg Oral M etoclopramide Hcl (Reglan) 10 Mg Tablet, 10 Mg Oral 2013-10-31 00:00:00 No 10 Tid W/Meals [facility] Tolterodine Tartrate (Detrol La) 4 Mg Cap.er.24h, 4 Mg Oral Tolterodine Tartrate (Detrol La) 4 Mg Cap.er.24h, 4 Mg Oral 2013-10-31 00:00:00 No 4 Daily as needed for Urinary Frequency [facility] Procedures This patient has no known procedures. Encounters Start Date/Time End Date/Time Encounter Type Admission Type [facility] Care Department Encounter ID Source 2017-07-04 14:13:00 2017-07-06 18:30:00 Discharged Inpatient (obs) [facility] [id number] [facility] 2017-06-07 00:32:00 2017-06-07 04:01:00 Departed Emergency Room ER TYREE BYRD [facility] [id number] [facility] 2016-12-31 01:22:00 2016-12-31 05:00:00 Departed Emergency Room [facility] [id number] [facility] Results Test Description Test Time Test Comments Results Result Comments Source CT CHEST W 2020-01-20 21:13:00 [facility] 1980 Sex: [place] [address] Patient Name: YARITZA SKINNER MR #: [id number] : 1980 Age/Sex: 40/F Req #: [id number] Adm Physician: Ordered by: JORGE LUIS FIERRO DO Report #: [id number] Location: ER Room/Bed: Procedure: [id number] CT/CT CHEST W Exam Date: 01/20/20 Exam Time: 1947 REPORT STATUS: Signed EXAM: CT Chest WITH contrast 01/20/2020 7:48 PM INDICATION: Chest pain COMPARISON: Chest radiograph on 06/07/2017. TECHNIQUE: Chest was scanned utilizing a multidetector helical scanner from the lung apex through the level of the adrenal glands with administration of IV contrast. Coronal and sagittal reformations were obtained. Routine protocol was performed. IV CONTRAST: 100 mL of Omnipaque 300 COMPLICATIONS: None RADIATION DOSE: Total DLP: 540 mGy*cm Estimated effective dose: (DLP x 0.014 x size factor) mSv CTDIvol has been reviewed. It is below the limits set by the Radiation Protocol Committee (RPC). Dose modulation, iterative reconstruction, and/or weight based adjustment of the mA/kV was utilized to reduce the radiation dose to as low as reasonably achievable. FINDINGS: LINES/ TUBES: None. VASCULAR: There are no filling defects within the pulmonary arteries to the segmental level. The pulmonary trunk has normal caliber measuring 2. Centimeters. The ascending and descending aorta have normal enhancement and caliber measuring 3.4 cm and 2.5 cm, respectively. LUNGS AND AIRWAYS: There are multifocal nodular airspace opacity in tree-in-bud configuration within the right upper lobe and left lower lobe . The central airways are patent. PLEURA: The pleural spaces are clear. HEART AND MEDIASTINUM: The thyroid gland is normal. No mediastinal, hilar or axillary lymphadenopathy. The heart is normal in size. There is no pericardial effusion. UPPER ABDOMEN: Unremarkable. BONES: The visualized bony thorax is within normal limits. SOFT TISSUES: Unremarkable. IMPRESSION: 1. No evidence of pulmonary embolism to the segmental level. 2. Nodular airspace opacities with tree-in-bud configuration within the right upper lobe and left lower lobe, most compatible with multifocal atypical pneumonia. Signed by: Yves Diaz MD on 01/20/2020 9:33 PM Dictated By: YVES DIAZ MD 32 Transcribed By: SOO on 01/20/202132 COPY TO: JORGE LUIS FIERRO DO Bedside Glucose 2017-07-06 16:29:00 Test Item Bedside Glucose (test code = 15512-8) 194 70-120 H Meter ID: [id number] [facility] Thy[facility] 2017-07-05 15:02:00* Test Item Value Reference Range Interpretation Comments Free Thyroxine (test code = 3024-7) 1.07 0.9-1.8 [facility] CenterThyroid Stimulating Hormone (TSH) 2017-07-05 15:02:00* Test Item Value Reference Range Interpretation Comments Thyroid Stimulating Hormone (TSH) (test code = 47358-8) 1.384 0.350-4.940 [facility] CenterHemoglobin A1c Unvwdld2385-88-03 14:40:00 * Test Item Value Reference Range Interpretation Comments Hemoglobin A1c Percent (test code = Hemoglobin A1c Percent) 9.4 4.0-7.0 [facility] Ldrow5183-95-63 06:34:00* Test Item Value Reference Range Interpretation Comments Sodium Level (test code = 2951-2) 132 136-145 L [facility] CenterPotassium Xqeda9026-76-19 06:34:00* Test Item Value Reference Range Interpretation Comments Potassium Level (test code = 2823-3) 4.0 3.5-5.1 [facility] CenterChloride Ztduj4673-61-61 06:34:00* Test Item Value Reference Range Interpretation Comments Chloride Level (test code = 2075-0) 101 98-107 [facility] CenterCarbon Dioxide Rgfyi1139-39-53 06:34:00* Test Item Value Reference Range Interpretation Comments Carbon Dioxide Level (test code = 2028-9) 23 22-29 [facility] CenterAnion Hti8608-45-57 06:34:00* Test Item Value Reference Range Interpretation Comments Anion Gap (test code = 22556-6) 12.0 8-16 [facility] CenterBlood Urea Gzyxexea8612-16-79 06:34:00* Test Item Value Reference Range Interpretation Comments Blood Urea Nitrogen (test code = 3094-0) 12 7-26 [facility] CenterCreatinine2018-04-18 06:34:00* Test Item Value Reference Range Interpretation Comments Creatinine (test code = 2160-0) 0.90 0.57-1.11 [facility] CenterBUN/Creatinine Oadhs2344-84-30 06:34:00* Test Item Value Reference Range Interpretation Comments BUN/Creatinine Ratio (test code = 3097-3) 13 6-25 [facility] CenterEstimat Glomerular Filtration Rate 2017-07-05 06:34:00* Test Item Value Reference Range Interpretation Comments Estimat Glomerular Filtration Rate (test code = 54053-3) 60- >60 Ranges were taken from the National Kidney Disease Education Program and the [facility] Foundation literature.Reference ranges:60 or greater: Yapcgt47-21 ( for 3 consecutive months): Chronic kidney disease 15 or less: Kidney failureCHI [facility] GrapevineGlucose Lrepn0548-43-98 06:34:00* Test Item Value Reference Range Interpretation Comments Glucose Level (test code = ABV5329) 367 74-118 H [facility] CenterCalcium Cuejz7933-12-14 06:34:00* Test Item Value Reference Range Interpretation Comments Calcium Level (test code = 52338-6) 8.7 8.4-10.2 [facility] CenterPhosphorus Noghw2882-88-83 06:34:00* Test Item Value Reference Range Interpretation Comments Phosphorus Level (test code = YBX9296) 2.7 2.3-4.7 [facility] CenterMagnesium Plqaa1951-55-21 06:34:00* Test Item Value Reference Range Interpretation Comments Magnesium Level (test code = 79634-6) 1.6 1.3-2.1 [facility] CenterTotal Dhvithgmt0090-52-25 06:34:00* Test Item Value Reference Range Interpretation Comments Total Bilirubin (test code = 1975-2) 0.4 0.2-1.2 [facility] CenterAspartate Amino Transf (AST/SGOT) 2017-07-05 06:34:00* Test Item Value Reference Range Interpretation Comments Aspartate Amino Transf (AST/SGOT) (test code = Aspartate Amino Transf (AST/SGOT)) 13 5-34 [facility] CenterAlanine Aminotransferase (ALT/SGPT) 2017-07-05 06:34:00* Test Item Value Reference Range Interpretation Comments Alanine Aminotransferase (ALT/SGPT) (test code = 1742-6) 13 0-55 [facility] CenterTotal Iaztioa3534-08-28 06:34:00* Test Item Value Reference Range Interpretation Comments Total Protein (test code = 2885-2) 6.4 6.5-8.1 L [facility] CenterAlbumin2018-04-18 06:34:00* Test Item Value Reference Range Interpretation Comments Albumin (test code = 1751-7) 3.0 3.5-5.0 L [facility] CenterGlobulin2018-04-18 06:34:00* Test Item Value Reference Range Interpretation Comments Globulin (test code = 12400-9) 3.4 2.3-3.5 [facility] CenterAlbumin/Globulin Dngzg2501-54-48 06:34:00 * Test Item Value Reference Range Interpretation Comments Albumin/Globulin Ratio (test code = 1759-0) 0.9 0.8-2.0 [facility] CenterAlkaline Yfrbqvkagrn4941-64-72 06:34:00* Test Item Value Reference Range Interpretation Comments Alkaline Phosphatase (test code = 6768-6) 75 40-150 [facility] CenterTriglycerides Gbrug5782-42-50 06:34:00* Test Item Value Reference Range Interpretation Comments Triglycerides Level (test code = 2571-8) 115 0-149 [facility] CenterCholesterol Kqdpq5903-59-15 06:34:00* Test Item Value Reference Range Interpretation Comments Cholesterol Level (test code = 2093-3) 137 0-199 Less than 200 mg/dL Low Eyid430 - 239 mg/dL Borderline Kdzn762 m g/dl and greater High Risk [facility] CenterLDL Gcljujxvqrn7943-48-33 06:34:00* Test Item Value Reference Range Interpretation Comments LDL Cholesterol (test code = 2089-1) 59 60-130 L [facility] CenterHDL Kksqwncdndd0131-80-17 06:34:00* Test Item Value Reference Range Interpretation Comments HDL Cholesterol (test code = 2085-9) 55 40-60 [facility] CenterCholesterol/HDL Awspk0937-12-15 06:34:00 * Test Item Value Reference Range Interpretation Comments Cholesterol/HDL Ratio (test code = 9830-1) 2.5 3.0-3.6 L [facility] Fzjak2089-98-14 11:43:00* Test Item Value Reference Range Interpretation Comments Urine Blood (test code = 09108-1) 3+ NEGATIVE H [facility] CenterUrine SPR9091-30-59 11:43:00* Test Item Value Reference Range Interpretation Comments Urine WBC (test code = 5821-4) NONE 0-5 [facility] CenterUrine MGQ7752-68-10 11:43:00* Test Item Value Reference Range Interpretation Comments Urine RBC (test code = 07697-6) 21-50 0-5 H [facility] CenterUrine Cojhytvy2215-98-75 11:43:00* Test Item Value Reference Range Interpretation Comments Urine Bacteria (test code = 37087-5) RARE NONE [facility] Epithelial Pobww3102-26-28 11:43:00 * Test Item Value Reference Range Interpretation Comments Urine Epithelial Cells (test code = 14023-0) FEW NONE [facility] CenterUrine Xwgnu7620-73-30 11:43:00* Test Item Value Reference Range Interpretation Comments Urine Yeast (test code = 74574-6) RARE NONE H [facility] CenterUrine Hwope0134-46-25 11:28:00* Test Item Value Reference Range Interpretation Comments Urine Color (test code = 5778-6) YELLOW YELLOW [facility] CenterUrine Ejyijpg4470-13-25 11:28:00* Test Item Value Reference Range Interpretation Comments Urine Clarity (test code = 97813-9) SL CLOUDY CLEAR [facility] CenterUrine Specific Vlutzwj9048-67-02 11:28:00 * Test Item Value Reference Range Interpretation Comments Urine Specific [place] (test code = 5811-5) 1.020 1.010-1.02 5 [facility] CenterUrine jN5981-28-80 11:28:00* Test Item Value Reference Range Interpretation Comments Urine pH (test code = 91054-8) 5 5-7 [facility] CenterUrine Leukocyte Jahvoosj8978-44-39 11:28:00* Test Item Value Reference Range Interpretation Comments Urine Leukocyte Esterase (test code = 5799-2) NEGATIVE NEGATIVE [facility] CenterUrine Egdewrk4154-23-48 11:28:00* Test Item Value Reference Range Interpretation Comments Urine Nitrite (test code = 72377-7) NEGATIVE NEGATIVE [facility] CenterUrine Glgzzma4749-31-22 11:28:00* Test Item Value Reference Range Interpretation Comments Urine Protein (test code = 5804-0) 1+ NEGATIVE H [facility] CenterUrine Glucose (UA)2017-07-04 11:28:00* Test Item Value Reference Range Interpretation Comments Urine Glucose (UA) (test code = 2349-9) 2+ NEGATIVE H [facility] CenterUrine Wmlsdvk3090-46-77 11:28:00* Test Item Value Reference Range Interpretation Comments Urine Ketones (test code = 64978-8) 3+ NEGATIVE H [facility] CenterUrine Uhfmhihcqmbw0187-71-27 11:28:00* Test Item Value Reference Range Interpretation Comments Urine Urobilinogen (test code = 33521-4) 0.2 0.2-1 [facility] CenterUrine Bqdmdyagv0502-49-40 11:28:00* Test Item Value Reference Range Interpretation Comments Urine Bilirubin (test code = 1978-6) NEGATIVE NEGATIVE [facility] CenterHuman Chorionic Gonadotropin, Qual 2017-07-04 09:48:00* Test Item Value Reference Range Interpretation Comments Human Chorionic Gonadotropin, Qual (test code = 2118-8) NEGATIVE NEGATIVE [facility] CenterWhite Blood Cloqd5374-30-78 09:41:00* Test Item Value Reference Range Interpretation Comments White Blood Count (test code = 6690-2) 9.85 4.8-10.8 [facility] CenterRed Blood Urzcl3982-86-02 09:41:00* Test Item Value Reference Range Interpretation Comments Red Blood Count (test code = 789-8) 4.45 3.6-5.1 [facility] CenterHemoglobin2018-04-17 09:41:00* Test Item Value Reference Range Interpretation Comments Hemoglobin (test code = 54916-1) 12.2 12.0-16.0 [facility] CenterHematocrit2018-04-17 09:41:00* Test Item Value Reference Range Interpretation Comments Hematocrit (test code = 4544-3) 36.1 34.2-44.1 [facility] CenterMean Corpuscular Qgdcdg0206-19-41 09:41:00* Test Item Value Reference Range Interpretation Comments Mean Corpuscular Volume (test code = 787-2) 81.1 81-99 [facility] CenterMean Corpuscular Zcngqwkzou5894-68-67 09:41:00* Test Item Value Reference Range Interpretation Comments Mean Corpuscular Hemoglobin (test code = 785-6) 27.4 28-32 L [facility] Corpuscular Hemoglobin Concent 2017-07-04 09:41:00* Test Item Value Reference Range Interpretation Comments Mean Corpuscular Hemoglobin Concent (test code = 786-4) 33.8 31-35 [facility] CenterRed Cell Distribution Pggfy6827-01-19 09:41:00* Test Item Value Reference Range Interpretation Comments Red Cell Distribution Width (test code = 34775-9) 15.7 11.7 -14.4 H [facility] CenterPlatelet Hdgdg8899-71-99 09:41:00* Test Item Value Reference Range Interpretation Comments Platelet Count (test code = 777-3) 196 140-360 [facility] CenterNeutrophils (%) (Auto)2017-07-04 09:41:00 * Test Item Value Reference Range Interpretation Comments Neutrophils (%) (Auto) (test code = 36140-2) 76.3 38.7-80.0 [facility] CenterLymphocytes (%) (Auto)2017-07-04 09:41:00 * Test Item Value Reference Range Interpretation Comments Lymphocytes (%) (Auto) (test code = 736-9) 18.0 18.0-39.1 [facility] CenterMonocytes (%) (Auto)2017-07-04 09:41:00* Test Item Value Reference Range Interpretation Comments Monocytes (%) (Auto) (test code = 5905-5) 4.8 4.4-11.3 [facility] CenterEosinophils (%) (Auto)2017-07-04 09:41:00 * Test Item Value Reference Range Interpretation Comments Eosinophils (%) (Auto) (test code = 713-8) 0.4 0.0-6.0 [facility] CenterBasophils (%) (Auto)2017-07-04 09:41:00* Test Item Value Reference Range Interpretation Comments Basophils (%) (Auto) (test code = 706-2) 0.1 0.0-1.0 [facility] CenterIM GRANULOCYTES %2017-07-04 09:41:00* Test Item Value Reference Range Interpretation Comments IM GRANULOCYTES % (test code = IM GRANULOCYTES %) 0.4 0.0- 1.0 [facility] CenterNeutrophils # (Auto)2017-07-04 09:41:00* Test Item Value Reference Range Interpretation Comments Neutrophils # (Auto) (test code = 751-8) 7.5 2.1-6.9 H [facility] CenterLymphocytes # (Auto)2017-07-04 09:41:00* Test Item Value Reference Range Interpretation Comments Lymphocytes # (Auto) (test code = 80613-7) 1.8 1.0-3.2 [facility] CenterMonocytes # (Auto)2017-07-04 09:41:00* Test Item Value Reference Range Interpretation Comments Monocytes # (Auto) (test code = 742-7) 0.5 0.2-0.8 [facility] CenterEosinophils # (Auto)2017-07-04 09:41:00* Test Item Value Reference Range Interpretation Comments Eosinophils # (Auto) (test code = 711-2) 0.0 0.0-0.4 [facility] CenterBasophils # (Auto)2017-07-04 09:41:00* Test Item Value Reference Range Interpretation Comments Basophils # (Auto) (test code = 704-7) 0.0 0.0-0.1 [facility] CenterAbsolute Immature Granulocyte (auto 2017-07-04 09:41:00* Test Item Value Reference Range Interpretation Comments Absolute Immature Granulocyte (auto (jaspreet t code = Absolute Immature Granulocyte (auto) 0.04 0-0.1 [facility] CenterBedside Sotdlge8278-51-03 04:00:00* Test Item Value Reference Range Interpretation Comments Bedside Glucose (test code = 08369-1) 232 70-120 H Meter ID: [id number] Memorial Hospitalodium Level 2017-06-07 03:16:00* Test Item Value Reference Range Interpretation Comments Sodium Level (test code = 2951-2) 135 136-145 L VERIFIED PREVIOUS RESULTSTitus [facility] Medical CenterPotassium Level 2017-06-07 03:16:00* Test Item Value Reference Range Interpretation Comments Potassium Level (test code = 2823-3) 3.7 3.5-5.1 VERIFIED PREVIOUS RESULTSTitus Regional Medical CenterChloride Level 2017-06-07 03:16:00* Test Item Value Reference Range Interpretation Comments Chloride Level (test code = 2075-0) 108 98-107 H [facility] CenterCarbon Dioxide Suzzx9355-24-70 03:16:00* Test Item Value Reference Range Interpretation Comments Carbon Dioxide Level (test code = 2028-9) 21 22-29 L [facility] CenterAnion Vvo9308-44-16 03:16:00* Test Item Value Reference Range Interpretation Comments Anion Gap (test code = 94464-5) 9.7 8-16 [facility] CenterBlood Urea Pxmxyasw3842-50-17 03:16:00* Test Item Value Reference Range Interpretation Comments Blood Urea Nitrogen (test code = 3094-0) 14 7-26 [facility] CenterCreatinine2018-03-21 03:16:00* Test Item Value Reference Range Interpretation Comments Creatinine (test code = 2160-0) 0.80 0.57-1.11 [facility] CenterBUN/Creatinine Tjwzp4938-74-82 03:16:00* Test Item Value Reference Range Interpretation Comments BUN/Creatinine Ratio (test code = 3097-3) 18 6-25 [facility] CenterEstimat Glomerular Filtration Rate 2017-06-07 03:16:00* Test Item Value Reference Range Interpretation Comments Estimat Glomerular Filtration Rate (test code = 13838-9) 60- >60 Ranges were taken from the National Kidney Disease Education Program and the [facility] Kid[facility] Foundation literature.Reference ranges:60 or greater: Qdvpuk76-91 ( for 3 consecutive months): Chronic kidney disease 15 or less: Kidney failureTitus Regional Medical CenterGlucose Xwemv8309-49-29 03:16:00* Test Item Value Reference Range Interpretation Comments Glucose Level (test code = MCR0266) 346 74-118 H [facility] CenterCalcium Pbvrv9554-17-13 03:16:00* Test Item Value Reference Range Interpretation Comments Calcium Level (test code = 44782-1) 8.2 8.4-10.2 L [facility]To[facility] Yfmitdoru5193-91-95 01:23:00* Test Item Value Reference Range Interpretation Comments Total Bilirubin (test code = 1975-2) 0.3 0.2-1.2 [facility] CenterAspartate Amino Transf (AST/SGOT) 2017-06-07 01:23:00* Test Item Value Reference Range Interpretation Comments Aspartate Amino Transf (AST/SGOT) (test code = Aspartate Amino Transf (AST/SGOT)) 16 5-34 [facility] CenterAlanine Aminotransferase (ALT/SGPT) 2017-06-07 01:23:00* Test Item Value Reference Range Interpretation Comments Alanine Aminotransferase (ALT/SGPT) (test code = 1742-6) 15 0-55 [facility] CenterTotal Hwioqfj3792-98-23 01:23:00* Test Item Value Reference Range Interpretation Comments Total Protein (test code = 2885-2) 6.8 6.5-8.1 [facility] CenterAlbumin2018-03-21 01:23:00* Test Item Value Reference Range Interpretation Comments Albumin (test code = 1751-7) 3.4 3.5-5.0 L [facility] CenterGlobulin2018-03-21 01:23:00* Test Item Value Reference Range Interpretation Comments Globulin (test code = 25276-5) 3.4 2.3-3.5 [facility] CenterAlbumin/Globulin Tmfcc9653-95-98 01:23:00 * Test Item Value Reference Range Interpretation Comments Albumin/Globulin Ratio (test code = 1759-0) 1.0 0.8-2.0 [facility] CenterAlkaline Ihyqujmejgi7395-01-09 01:23:00* Test Item Value Reference Range Interpretation Comments Alkaline Phosphatase (test code = 6768-6) 122 40-150 [facility] CenterUrine RZC8017-88-22 01:13:00* Test Item Value Reference Range Interpretation Comments Urine WBC (test code = 5821-4) 0-5 0-5 [facility] CenterUrine EHK9040-27-60 01:13:00* Test Item Value Reference Range Interpretation Comments Urine RBC (test code = 27515-5) 0-5 0-5 [facility] CenterUrine Ukdrfknj5915-09-95 01:13:00* Test Item Value Reference Range Interpretation Comments Urine Bacteria (test code = 06177-7) RARE NONE [facility] CenterUrine Epithelial Frqme8296-93-66 01:13:00 * Test Item Value Reference Range Interpretation Comments Urine Epithelial Cells (test code = 05642-9) RARE NONE [facility] CenterUrine Itfcx3781-26-62 01:05:00* Test Item Value Reference Range Interpretation Comments Urine Color (test code = 5778-6) YELLOW YELLOW [facility] CenterUrine Gtrwpuo5263-95-04 01:05:00* Test Item Value Reference Range Interpretation Comments Urine Clarity (test code = 62550-9) CLEAR CLEAR [facility] CenterUrine Specific Kkpphls0344-25-02 01:05:00 * Test Item Value Reference Range Interpretation Comments Urine Specific [place] (test code = 5811-5) 1.015 1.010-1.02 5 [facility] [id number] 01:05:00* Test Item Value Reference Range Interpretation Comments Urine pH (test code = 08391-0) 5 5-7 [facility] Leukocyte [id number] 01:05:00* Test Item Value Reference Range Interpretation Comments Urine Leukocyte Esterase (test code = 5799-2) NEGATIVE NEGATIVE [facility] [id number] 01:05:00* Test Item Value Reference Range Interpretation Comments Urine Nitrite (test code = 88048-8) NEGATIVE NEGATIVE [facility] [id number] 01:05:00* Test Item Value Reference Range Interpretation Comments Urine Protein (test code = 5804-0) NEGATIVE NEGATIVE [facility] Glucose (UA)2017-06-07 01:05:00* Test Item Value Reference Range Interpretation Comments Urine Glucose (UA) (test code = 2349-9) 3+ NEGATIVE H [facility] [id number] 01:05:00* Test Item Value Reference Range Interpretation Comments Urine Ketones (test code = 64125-8) 2+ NEGATIVE H [facility] Aquqjhhavcwm0846-49-21 01:05:00* Test Item Value Reference Range Interpretation Comments Urine Urobilinogen (test code = 39633-3) 0.2 0.2-1 [facility] Vmljluarx6621-01-67 01:05:00* Test Item Value Reference Range Interpretation Comments Urine Bilirubin (test code = 1978-6) NEGATIVE NEGATIVE [facility] Vmvho9005-06-44 01:05:00* Test Item Value Reference Range Interpretation Comments Urine Blood (test code = 06058-7) TRACE NEGATIVE H [facility] CenterWhite Blood Wifhg9473-69-07 01:04:00* Test Item Value Reference Range Interpretation Comments White Blood Count (test code = 6690-2) 9.59 4.8-10.8 [facility] Bepyt3326-63-92 01:04:00* Test Item Value Reference Range Interpretation Comments Red Blood Count (test code = 789-8) 4.47 3.6-5.1 [facility]oglobin2018-03-21 01:04:00* Test Item Value Reference Range Interpretation Comments Hemoglobin (test code = 38675-6) 12.0 12.0-16.0 [facility] CenterHematocrit2018-03-21 01:04:00* Test Item Value Reference Range Interpretation Comments Hematocrit (test code = 4544-3) 36.7 34.2-44.1 [facility] CenterMean Corpuscular Gniwvc7303-17-56 01:04:00* Test Item Value Reference Range Interpretation Comments Mean Corpuscular Volume (test code = 787-2) 82.1 81-99 [facility] Center[facility] Corpuscular Reqdnwplhe8219-28-81 01:04:00* Test Item Value Reference Range Interpretation Comments Mean Corpuscular Hemoglobin (test code = 785-6) 26.8 28-32 L [facility] Corpuscular Hemoglobin Concent 2017-06-07 01:04:00* Test Item Value Reference Range Interpretation Comments Mean Corpuscular Hemoglobin Concent (test code = 786-4) 32.7 31-35 [facility] Center[facility] Cell Distribution [id number] 01:04:00* Test Item Value Reference Range Interpretation Comments Red Cell Distribution Width (test code = 62792-5) 15.7 11.7 -14.4 H [facility] CenterPlatelet [id number] 01:04:00* Test Item Value Reference Range Interpretation Comments Platelet Count (test code = 777-3) 182 140-360 [facility] CenterNeutrophils (%) (Auto)2017-06-07 01:04:00 * Test Item Value Reference Range Interpretation Comments Neutrophils (%) (Auto) (test code = 01809-0) 66.1 38.7-80.0 [facility] CenterLymphocytes (%) (Auto)2017-06-07 01:04:00 * Test Item Value Reference Range Interpretation Comments Lymphocytes (%) (Auto) (test code = 736-9) 27.1 18.0-39.1 [facility] CenterMonocytes (%) (Auto)2017-06-07 01:04:00* Test Item Value Reference Range Interpretation Comments Monocytes (%) (Auto) (test code = 5905-5) 4.5 4.4-11.3 [facility] CenterEosinophils (%) (Auto)2017-06-07 01:04:00 * Test Item Value Reference Range Interpretation Comments Eosinophils (%) (Auto) (test code = 713-8) 1.9 0.0-6.0 [facility] Center[facility] (%) (Auto)2017-06-07 01:04:00* Test Item Value Reference Range Interpretation Comments Basophils (%) (Auto) (test code = 706-2) 0.2 0.0-1.0 [facility] CenterIM GRANULOCYTES %2017-06-07 01:04:00* Test Item Value Reference Range Interpretation Comments IM GRANULOCYTES % (test code = IM GRANULOCYTES %) 0.2 0.0- 1.0 [facility] CenterNeutrophils # (Auto)2017-06-07 01:04:00* Test Item Value Reference Range Interpretation Comments Neutrophils # (Auto) (test code = 751-8) 6.3 2.1-6.9 [facility] CenterLymphocytes # (Auto)2017-06-07 01:04:00* Test Item Value Reference Range Interpretation Comments Lymphocytes # (Auto) (test code = 33452-9) 2.6 1.0-3.2 [facility] CenterMonocytes # (Auto)2017-06-07 01:04:00* Test Item Value Reference Range Interpretation Comments Monocytes # (Auto) (test code = 742-7) 0.4 0.2-0.8 [facility] CenterEosinophils # (Auto)2017-06-07 01:04:00* Test Item Value Reference Range Interpretation Comments Eosinophils # (Auto) (test code = 711-2) 0.2 0.0-0.4 [facility] CenterBasophils # (Auto)2017-06-07 01:04:00* Test Item Value Reference Range Interpretation Comments Basophils # (Auto) (test code = 704-7) 0.0 0.0-0.1 [facility] CenterAbsolute Immature Granulocyte (auto 2017-06-07 01:04:00* Test Item Value Reference Range Interpretation Comments Absolute Immature Granulocyte (auto (jaspreet t code = Absolute Immature Granulocyte (auto) 0.02 0-0.1 [facility] CenterAmylase [id number] 02:01:00* Test Item Value Reference Range Interpretation Comments Amylase Level (test code = 1798-8) 44 25-125 [facility] CenterLipase2017-10-14 02:01:00* Test Item Value Reference Range Interpretation Comments Lipase (test code = 3040-3) [facility] CenterEthyl Alcohol Xekbw1688-73-25 02:01:00* Test Item Value Reference Range Interpretation Comments Ethyl Alcohol Level (test code = 5643-2) 220.0 0.0-10.0 H [facility] CenterAmylase [id number] 02:01:00* Test Item Value Reference Range Interpretation Comments Amylase Level (test code = 1798-8) 44 25-125 [facility] CenterLipase2017-10-14 02:01:00* Test Item Value Reference Range Interpretation Comments Lipase (test code = 3040-3) [facility] CenterEthyl Alcohol Htiwr6798-69-25 02:01:00* Test Item Value Reference Range Interpretation Comments Ethyl Alcohol Level (test code = 5643-2) 220.0 0.0-10.0 H [facility] CenterHuman Chorionic Gonadotropin, Qual 2016-12-31 01:49:00* Test Item Value Reference Range Interpretation Comments Human Chorionic Gonadotropin, Qual (test code = 2118-8) NEGATIVE NEGATIVE [facility] CenterCHEST SINGLE ([facility]ABLE) [facility] [address] [place] [address] Patient Name: YARITZA SKINNER MR #: [id number] : 1980 Age/Sex: 37/F Req #: [id number] Adm Physician: Ordered by: TYREE BYRD MD Report #: [id number] Location: Room/Bed: Procedure: [id number] DX/CHEST SINGLE (PO RTABLE) Exam Date: 06/07/17 Exam Time: 0117 RE PORT STATUS: Signed EXAM: CHEST SINGLE (PORTABLE), AP 1 view INDICATION: Hy perglycemia, bodyaches COMPARISON: None FINDINGS: LINES/TUBES: None LUNGS: [...]
--- NOTE | 2020-01-24 08:50 | Emergency Department Note ---
History of Present Illnes History of Present Illness Chief Complaint: COVID PUI History of Present Illness This is a 40 year old female Patient in from home with complaints of body aches and shortness of breath. Patient seen here & tested positive for covid 19 on 01/19/2020, had CT chest which showed no PE. Vital signs stable in triage. Oxygen 98% on room air. 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 Any updates have been documented here. Past Medical History Recent Fever: No Clinical Suspicion of Infectio: No New/Unexplained Change in Ment: No Past Medical History: Hypertension, Diabetes, Hyperlipedemia Other Medical History: HIGH CHOLESTEROL Past Surgical History: None Other Surgery: KIDNEY STENTS, INSULIN PUMP Social History Smoking Cessation: Never Smoker Counseling Performed: No Alcohol Use: Occasional Any Illegal Drug Use: No TB Exposure/Symptoms: No Physically hurt or threatened: No Family History Family history of heart diseas: No Other Last Tetanus: OOD Any Pre-Existing Lines (PICC,: No Review of Systems Review of Systems Constitutional: Reports as per HPI, Reports chills, Reports malaise EENTM: Reports no symptoms Cardiovascular: Reports no symptoms Respiratory: Reports as per HPI, Reports cough, Reports dyspnea Gastrointestinal: Reports no symptoms Genitourinary: Reports no symptoms Musculoskeletal: Reports as per HPI, Reports other (achy all over) Integumentary: Reports no symptoms Neurological: Reports no symptoms Psychological: Reports no symptoms Endocrine: Reports no symptoms Hematological/Lymphatic: Reports no symptoms Review of other systems: All other systems negative Physical Exam Related Data Allergies: Coded Allergies: levofloxacin (Verified Allergy, Intermediate, shivering, shaking, pain, 01/20/20) Triage Vital Signs Vital Signs Date Time Temp Pulse Resp B/P (MAP) Pulse Ox O2 Delivery O2 Flow Rate FiO2 01/22/20 16:33 99.1 88 18 135/82 98 Room Air Vital signs reviewed: Yes Physical Exam CONSTITUTIONAL Constitutional: Present well-developed, Present well-nourished HENT HENT: Present normocephalic, Present atraumatic, Present oropharynx clear/moist, Present nose normal HENT L/R: Present left ext ear normal, Present right ext ear normal EYES Eyes: Reports PERRL, Reports conjunctivae normal NECK Neck: Present ROM normal PULMONARY Pulmonary: Present effort normal, Present breath sounds normal CARDIOVASCULAR Cardiovascular: Present regular rhythm, Present heart sounds normal, Present capillary refill normal, Present normal rate GASTROINTESTINAL Abdominal: Present soft, Present nontender, Present bowel sounds normal GENITOURINARY Genitourinary: Present exam deferred SKIN Skin: Present warm, Present dry MUSCULOSKELETAL Musculoskeletal: Present ROM normal NEUROLOGICAL Neurological: Present alert, Present oriented x 3, Present no gross motor or sensory deficits PSYCHOLOGICAL Psychological: Present mood/affect normal, Present judgement normal Assessment & Plan Medical Decision Making MDM pt diagnosed with COVID19 here 2 days ago, comes with same c/o, vitals normal including Resp Rate and O2 sat - reassurance Reassessment Reassessment DC home, F/U PCP, continue meds, Tyl/Motrin as directed, continue self-quarantine/self-isolation, proning, drink plenty of fluids. RTED prn Assessment & Plan Final Impression: (1) COVID-19 Depart Disposition: HOME, SELF-CARE Last Vital Signs Date Time Temp Pulse Resp B/P (MAP) Pulse Ox O2 Delivery O2 Flow Rate FiO2 01/22/20 16:33 99.1 88 18 135/82 98 Room Air Home Meds Active Scripts [Insulin Detemir] 100 UNIT/ML PEN No Conflict Check, 16 UNIT SQ HS for 30 Days Prov:STACEY YEE MD 07/06/17 Reported Medications Lisinopril (LISINOPRIL) 10 Mg Tablet, 20 MG PO DAILY, #30 TAB 07/04/17 Pravastatin Sodium (PRAVASTATIN SODIUM) 20 Mg Tablet, 2 MG PO HS 07/04/17 [Novolog] No Conflict Check, 25 UNITS SC ACHS 08/25/14 Ibuprofen (IBUPROFEN) 400 Mg Tablet, 800 MG PO PRN for PAIN, TAB 08/22/14 TIM PETTIT MD Jan 24, 2020 08:49
== END 2020-01-22 17:00 | disposition home or self-care (01) ==
LOC: ER 16:33
DX: U07.1 COVID-19 (principal); R06.02 Shortness of breath; R05 Cough; I10 Essential (primary) hypertension; E11.9 Type 2 diabetes mellitus without complications; E78.5 Hyperlipidemia, unspecified; E78.00 Pure hypercholesterolemia, unspecified
CPT/HCPCS: 99283

== ENCOUNTER 2020-08-27 06:13 | Emergency (ER) | payer OTHER ==
[~2020-08-27] VITALS: Ht 172.7 cm; Wt 89.4 kg
== END 2020-08-27 07:22 | disposition home or self-care (01) ==
LOC: ER 06:28
DX: E09.649 Drug or chemical induced diabetes mellitus with hypoglycemia without coma (principal); T38.3X5A Adverse effect of insulin and oral hypoglycemic [antidiabetic] drugs, initial encounter; Y92.008 Other place in unspecified non-institutional (private) residence as the place of occurrence of the external cause; I10 Essential (primary) hypertension; E78.5 Hyperlipidemia, unspecified; E78.00 Pure hypercholesterolemia, unspecified
CPT/HCPCS: 36415; 82948; 99283